=== PATIENT | female | born 1950 | race Asian ===

== ENCOUNTER → 2018-05-07 | Outpatient (CLI) | payer OTHER, MEDICARE ==
[~2018-05-07] MED LIST: GADOBUTROL 10 ML VIAL IVP ONE
== END ==
LOC: FIMAGING 12:18
DX: H91.8X3 Other specified hearing loss, bilateral (principal); G31.9 Degenerative disease of nervous system, unspecified
CPT/HCPCS: 70553; A9585; 82565-PO